=== PATIENT | male | born 1975 | race Caucasian/White ===

== ENCOUNTER 2021-01-04 12:41 | Emergency (ER) | payer OTHER, SELFPAY ==
[2021-01-04 12:55] VITALS: BP 154/75; PULSE 76; RESP 16; TEMP 36.6; O2SAT 100
--- NOTE | 2021-01-04 12:57 | DI.RAD.S_ITS ---
PROCEDURE: XR KNEE RT 3V INDICATIONS: knee injury TECHNIQUE: 3 views of the knee were acquired. COMPARISON: [facility], CR, XR FEMUR RT MIN 2V, 01/04/2021, 13:46. Former[facility], CR, XR TIBIA FIBULA RT 2V, 01/04/2021, 13:46. FINDINGS: Bones: No fractures or dislocations. No suspicious bony lesions. Soft tissues: There is a moderate knee joint effusion. No joint effusion. No suspicious soft tissue calcifications. IMPRESSION: 1. No acute osseous abnormalities. 2. Moderate knee joint effusion. Dictated by: Bhupendra Shah M.D. on 01/04/2021 at 14:20 Approved by: Bhupendra Shah M.D. on 01/04/2021 at 14:21
--- NOTE | 2021-01-04 13:45 | DI.RAD.S_ITS ---
PROCEDURE: XR TIBIA FUBULA RT 2V INDICATIONS: Fall TECHNIQUE: 3 views of the tibia and fibula were acquired. COMPARISON: None. FINDINGS: Bones: A small ossification is seen projecting over the distal fibula just lateral to the tibia that is likely chronic, but an acute avulsion fracture is not excluded. No suspicious bony lesions. Small posterior calcaneal enthesophyte. Soft tissues: No suspicious soft tissue calcifications or masses. There is mild edema over the lateral malleolus. IMPRESSION: A small ossification is seen lateral to the tibial plafond projecting over the fibula that is most likely chronic, but could represent a mildly displaced osseous avulsion fracture. Recommend correlation for point tenderness. If indicated clinically, CT or MRI could be obtained for further evaluation. Dictated by: Cornelius Castaneda M.D. on 01/04/2021 at 14:23 Approved by: Cornelius Castaneda M.D. on 01/04/2021 at 14:26
--- NOTE | 2021-01-04 13:45 | DI.RAD.S_ITS ---
PROCEDURE: XR FEMUR RT MIN 2V INDICATIONS: Fall TECHNIQUE: 4 views of the femur were acquired. COMPARISON: None. FINDINGS: Bones: No acute fractures or dislocations a nonspecific sclerotic lesion is seen adjacent to the cortex at the anterior medial aspect of the distal femoral shaft measuring approximately 2.5 cm in craniocaudal extent. Soft tissues: No suspicious soft tissue calcifications or masses. IMPRESSION: 1. No acute osseous abnormality. If clinical suspicion and/or symptoms persist, additional imaging with repeat plain films, or advanced imaging (e.g. CT, MRI) may be helpful for further assessment. 2. Nonspecific sclerotic lesion adjacent to the cortex at the anterior medial aspect of the distal femoral diaphysis. Recommend correlation with any prior radiographs if available. If the patient has no history of known or suspected malignancy, repeat radiographs may be obtained in 3-6 months to demonstrate stability. Dictated by: Cornelius Castaneda M.D. on 01/04/2021 at 14:17 Approved by: Cornelius Castaneda M.D. on 01/04/2021 at 14:22
[2021-01-04] MEDS: KETOROLAC 30 MG/ML VIAL 15 MG IM (14:10)
--- NOTE | 2021-01-04 14:53 | DI.CT.S_ITS ---
PROCEDURE: CT LE RT WO CON INDICATIONS: ?Avulsion of tibia TECHNIQUE: Noncontrast 1 mm axial sections acquired of the right lower leg, with coronal and sagittal reformats. COMPARISON: [facility], CR, XR TIBIA FIBULA RT 2V, 01/04/2021, 13:46. FINDINGS: Image quality: Excellent. Bones: Small ossification anterior to the distal fibula at the attachment site of the anterior tibiofibular ligament appears well corticated, likely the sequela of remote prior trauma. No acute osseous fracture identified. A prominent peroneal tubercle is present at the lateral calcaneus. Soft tissues: There is a small knee joint effusion. Subcutaneous edema is seen anterior and medial to the knee. There is also subcutaneous edema at the lateral aspect of the ankle. The articular cartilages, ligaments, and tendons are not well evaluated with CT The lower leg musculature is normal in bulk. IMPRESSION: 1. Small ossification anterior to the distal fibula appears well-corticated, consistent with a remote prior injury. No acute fracture is seen. 2. Small knee joint effusion. Subcutaneous edema anterior and medial to the knee. 3. Nonspecific soft tissue edema at the lateral aspect of the ankle. Dictated by: Cornelius Castaneda M.D. on 01/04/2021 at 15:23 Approved by: Cornelius Castaneda M.D. on 01/04/2021 at 15:31
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
== END 2021-01-04 15:49 | disposition home or self-care (01) ==
PROVIDERS: Emergency Provider Student in an Organized Health Care Education/Training Program; PCP Physician Assistant
DX: M25.561 Pain in right knee (principal); W19.XXXA Unspecified fall, initial encounter
CPT/HCPCS: 73552; 73562; 73590; 73700; 96372; 99284; J1885

== ENCOUNTER → 2021-11-25 12:14 | Outpatient (CLI) | payer OTHER, SELFPAY ==
[2021-11-25 20:05] LABS: Cholesterol 211 mg/dL (140-199); HDL Cholesterol 49 mg/dL (40-60); LDL Cholesterol Calculated 141 mg/dL (<100); Triglycerides 105 mg/dL (35-150)
== END ==
PROVIDERS: PCP Physician Assistant; Visit Provider Physician Assistant
DX: E78.00 Pure hypercholesterolemia, unspecified (principal); Z12.11 Encounter for screening for malignant neoplasm of colon; Z12.5 Encounter for screening for malignant neoplasm of prostate; Z79.899 Other long term (current) drug therapy
CPT/HCPCS: 80061; G0103